=== PATIENT | male | born 1970 | race Caucasian/White ===

== ENCOUNTER 2021-10-31 00:23 | Day surgery (SDC) | payer OTHER, SELFPAY ==
--- NOTE | 2021-08-31 09:34 | SUR.PREOP ---
Pt called stating his tested positive to Covid. Returned patient's call and message left asking for a call back.
[2021-10-21 14:04] VITALS: BMI 43.8
[2021-10-31 08:25] VITALS: BP 137/84; PULSE 79; RESP 19; TEMP 36.3; O2SAT 99; BMI 44.4
[2021-10-31] MEDS: LACTATED RINGERS 1,000 ML 150 ML IV CONT (08:28)
--- NOTE | 2021-10-31 08:29 | WPDANESEPPF ---
Anes - Initial Pre Proc Eval Procedure: Operation Date: 10/31/21 09:30 Proposed Procedures p Screening Colonoscopy - Matthieu Scherer MD Date/Time: 10/31/21 08:29 Surgeon: Matthieu Scherer MD Pre Op Diagnosis: neoplasm screening Patient Data Age: 51 Gender: M Height: 1.91 m Weight: 161.4 kg Last Vital Signs Temp 36.3 C L 10/31/21 08:25 Pulse 79 10/31/21 08:25 Resp 19 10/31/21 08:25 BP 137/84 10/31/21 08:25 Pulse Ox 99 10/31/21 08:25 Allergies Allergy/AdvReac Type Severity Reaction Status Date / Time No Known Allergies Allergy Verified 10/31/21 08:24 Home Medications Medication Instructions Recorded Confirmed Type empagliflozin [Jardiance] 10 mg PO DAILY 08/30/21 10/31/21 History metformin 500 mg PO DAILY 08/30/21 10/31/21 History pravastatin 20 mg PO DAILY 08/30/21 10/31/21 History semaglutide [Ozempic] 0.25 mg SUBCUT WEEKLY 08/30/21 10/31/21 History tadalafil 20 mg PO PRN PRN 08/30/21 10/31/21 History Patient hx anesthesia problems: none Family hx anesthesia problems: none Results Review: All pre-operative results and documents have been reviewed as part of the pre-operative evaluation. [facility] Past Medical History Medical History (Updated 10/31/21 @ 08:29 by Lobito Peralta MD) Diabetes Morbid obesity Social History Social History Smoking packs per day: 1 Smoking cigarettes per day: 20.0 Years smoked: 10 Smoking pack-years: 10.00 Smoking status: Former smoker Tobacco type: cigarettes Additional smoking assessment comments: smokes 1 pack every 2 months Alcohol intake: current Drinks per week: 5 Alcohol use details: socially Substance use: never Substance use type: does not use Living arrangements: with family Spiritual care concerns: No Anes - Eval Final PreProcedure Day of Procedure 10/31/21 08:29 Patient weight: morbidly obese Heart: regular rate and rhythm Lungs: clear to auscultation Airway: Mallampati scale class II Neurological: alert and oriented Last oral intake: >/= 8 hours ASA classification: III Emergent: no Anesthetic plan: proceed Anesthesia type and monitoring: general GIVS and standard monitoring Results Review: All pre-operative results and documents have been reviewed as part of the pre-operative evaluation. Informed Consent: The patient's anesthetic plan and its attendant risks and benefits were discussed with the patient/family/POA. Questions were solicited and answers provided to the satisfaction of the patient/family/POA.
[2021-10-31 08:40] LABS: Glucose Point of Care 90 mg/dl (65-105)
--- NOTE | 2021-10-31 09:06 | WPDGICN ---
Assessment and Plan Assessment and plan (1) Encounter for screening colonoscopy: Code(s): Z12.11 - Encounter for screening for malignant neoplasm of colon Status: Acute Assessment and Plan: Patient presents for screening colonoscopy. Appears to be at average risk for colon polyps. Further recommendations will be given after endoscopy. GI Consult Note Consult date/time: 10/31/21 09:06 HPI: Garry Ricks Jr. is a 51 year old male presents for screening colonoscopy. Patient's current weight appetite bowel movements are normal. He denies abdominal pain. He has had no bleeding. Patient reports colonoscopy 6 or 7 years ago because of rectal bleeding that which time he was found to have internal hemorrhoids. These have not been a problem recently. His bowel habits are normal at present. Patient gives a family history that his father had pancreatic cancer his grandfather had colon cancer. Patient presents today for neoplasia screening. Review of Systems Review of Systems: All systems reviewed & are unremarkable except as noted in HPI and below PMFSH Past Medical History Medical History (Updated 10/31/21 @ 09:07 by Matthieu Scherer MD) Diabetes Morbid obesity Social History Social History Smoking packs per day: 1 Smoking cigarettes per day: 20.0 Years smoked: 10 Smoking pack-years: 10.00 Smoking status: Former smoker Tobacco type: cigarettes Additional smoking assessment comments: smokes 1 pack every 2 months Alcohol intake: current Drinks per week: 5 Alcohol use details: socially Substance use: never Substance use type: does not use Living arrangements: with family Spiritual care concerns: No Meds Home Medications and Allergies Home Medications Medication Instructions Recorded Confirmed Type empagliflozin [Jardiance] 10 mg PO DAILY 08/30/21 10/31/21 History metformin 500 mg PO DAILY 08/30/21 10/31/21 History pravastatin 20 mg PO DAILY 08/30/21 10/31/21 History semaglutide [Ozempic] 0.25 mg SUBCUT WEEKLY 08/30/21 10/31/21 History tadalafil 20 mg PO PRN PRN 08/30/21 10/31/21 History Allergies Allergy/AdvReac Type Severity Reaction Status Date / Time No Known Allergies Allergy Verified 10/31/21 08:24 Vital Signs Vital Signs - 24 hr 10/31/21 08:25 Temperature 97.3 F L Pulse Rate 79 Respiratory Rate 19 Blood Pressure 137/84 Pulse Oximetry 99 Exam Narrative: Physical exam reveals patient to be alert. Vital signs stable. HEENT exam is unremarkable. Patient is anicteric. Lungs are clear to auscultation and percussion. Heart is without murmur or extra sounds. Abdomen bowel sounds are present soft nontender with no organomegaly. Digital external rectal exam is normal.
[2021-10-31 09:29] VITALS: BP 118/79; PULSE 78; RESP 24; O2SAT 96
[2021-10-31 09:39] VITALS: BP 136/86; PULSE 76; RESP 16; O2SAT 100
[2021-10-31 09:49] VITALS: BP 131/86; PULSE 71; RESP 19; O2SAT 100
== END 2021-10-31 09:57 | disposition home or self-care (01) ==
PROVIDERS: PCP Nurse Practitioner Adult Health; Visit Provider Internal Medicine Gastroenterology
PROC: 0DJD8ZZ Inspection of Lower Intestinal Tract, Via Natural or Artificial Opening Endoscopic (ICD-10-PCS; CPT 45378; principal; 2021-10-31 09:30)
DX: Z12.11 Encounter for screening for malignant neoplasm of colon (principal); K64.8 Other hemorrhoids; D12.0 Benign neoplasm of cecum; E11.9 Type 2 diabetes mellitus without complications; Z80.0 Family history of malignant neoplasm of digestive organs; F17.210 Nicotine dependence, cigarettes, uncomplicated; Z79.84 Long term (current) use of oral hypoglycemic drugs; E66.01 Morbid (severe) obesity due to excess calories; Z68.41 Body mass index [BMI] 40.0-44.9, adult
CPT/HCPCS: 45385; 82948; 88305; J2001; J2704; J7120